=== PATIENT | female | born 1945 | race Caucasian/White ===

== ENCOUNTER 2023-11-12 12:47 | Emergency (ER) | payer MEDICARE, OTHER ==
[~2023-11-12] VITALS: Ht 167.6 cm; Wt 77.0 kg
[~2023-11-12 12:47] MED LIST: MED4 MT; METO25TA6 MT
[2023-11-12] MEDS: FUROSEMIDE 40MG/4ML VIAL IV ONE (13:15)
[2023-11-12 13:40] VITALS: RESP 20
[2023-11-12 13:44] LABS: BG CARBOXYHEMOGLOBIN 1.3 % (0.5-1.5); BG DEOXYHEMOGLOBIN 2.1 % (0.0-5.0); BG FRACTION INSPIRED OXYGEN 68; BG HCO3 ACT 27.4 mmol/L (22.0-26.0); BG METHEMOGLOBIN 0.1 % (0.0-1.5); BG OXYGEN SATURATION 97.9 % (92.0-98.5); BG OXYHEMOGLOBIN 96.5 % (94.0-97.0); BG PCO2 88.2 mmHg (35.0-45.0); BG SAMPLE SITE RIGHT RADIAL; BG TOTAL HEMOGLOBIN 12.7 g/dL (12.0-18.0); BG VENT MODE MASK - SIMPLE
[2023-11-12 13:59] LABS: BASOPHILS % 0.3 % (0.0-2.0); DIFFERENTIAL COMMENT 0; HEMATOCRIT. 36.9 % (36.0-48.0); HEMOGLOBIN. 11.3 g/dL (12.0-16.0); LYMPHOCYTES % 7.6 % (20.0-50.0); MEAN CORPUSCULAR HEMOGLOBIN 24.8 pg (28.0-32.0); MEAN CORPUSCULAR HGB CONC 30.5 g/dL (31.0-37.0); MEAN CORPUSCULAR VOLUME 81.5 fL (81.0-99.0); MEAN PLATELET VOLUME 9.6 fl (7.4-10.4); MONOCYTES % 4.8 % (2.0-8.0); NEUTROPHILS % 85.3 % (40.0-76.0); PLATELET 174 x1000/uL (130-400); RED BLOOD CELL COUNT 4.53 mill/uL (4.2-5.4); RED CELL DISTRIBUTION WIDTH 19.8 % (11.6-14.6); WHITE BLOOD COUNT 6.9 x1000/uL (4.5-11.0)
[2023-11-12 14:10] LABS: ALANINE AMINOTRANSFERASE 33 IU/L (10-49); ALBUMIN 3.8 g/dL (3.2-4.8); ASPARTATE AMINOTRANSFERASE 94 IU/L (<34); BILIRUBIN TOTAL 0.9 mg/dL (0.1-1.0); CALCIUM 9.4 mg/dL (8.7-10.4); CARBON DIOXIDE 29 mEq/L (21-32); CHLORIDE 99 mEq/L (98-107); CREATININE 1.1 mg/dL (0.6-1.0); GLUCOSE 135 mg/dL (70-105); PROTEIN TOTAL 7.7 g/dL (6.0-8.3); SODIUM 131 mEq/L (136-145); TROPONIN I HIGH SENSITIVITY 5 ng/L (3.0-34); UREA NITROGEN BLOOD 48 mg/dL (9-23)
[2023-11-12 14:11] LABS: CLARITY URINE CLEAR (CLEAR); COLOR URINE DARK YELLOW (YELLOW); GLUCOSE URINE NEGATIVE (NEGATIVE); KETONES URINE NEGATIVE (NEGATIVE); LEUKOCYTE ESTERASE URINE TRACE (NEGATIVE); NITRITE URINE NEGATIVE (NEGATIVE); OCCULT BLOOD URINE NEGATIVE (NEGATIVE); PH URINE 5.5 (4.5-8.0); PROTEIN URINE 1+ (NEGATIVE); SPECIFIC GRAVITY URINE 1.016 (1.005-1.030)
[2023-11-12 14:24] LABS: POTASSIUM 6.6 mEq/L (3.5-5.1)
[2023-11-12 14:27] LABS: FINE GRANULAR CASTS URINE 0-5 /lpf; HYALINE CASTS URINE TNTC /lpf
[2023-11-12 14:29] LABS: MUCUS URINE TRACE /lpf (< = 2+)
[2023-11-12 14:30] LABS: RBC URINE 0-2 /hpf (0-2)
[2023-11-12 14:32] LABS: BACTERIA URINE 1+; SQUAMOUS EPITHELIAL CELL URINE RARE /lpf (RARE/1+)
[2023-11-12 15:00] VITALS: PULSE 70; RESP 21
[2023-11-12] MEDS: PIPERACILLIN/TAZO 3.375G/50ML 50 ML IV NR (15:00)
[2023-11-12] MEDS: METHYLPREDNISOLONE SOD SUCC 125MG/2ML (ACT-O-VIAL) IV NR (15:00)
[2023-11-12] MEDS: DEXTROSE 50% WATER 50ML SYRINGE IV NR (15:00)
[2023-11-12] MEDS: MAGNESIUM 2 G PREMIX 50 ML IV NR (15:00)
[2023-11-12] MEDS: INSULIN REGULAR (HUMULIN R) 300UNITS/3ML VIAL IV NR (15:00)
[2023-11-12] MEDS: SODIUM CHLORIDE 0.9% 250 ML IV ONE (15:15)
[2023-11-12] MEDS: ALBUTEROL (0.083%) 2.5MG/3ML NEB HHN NR (15:41)
[2023-11-12] MEDS: IPRATROPIUM BROMIDE (0.02%) 0.5MG/2.5ML NEB HHN NR (15:41)
[2023-11-12] MEDS: FENTANYL CITRATE/PF 50MCG/ML 2ML VIAL IV ONE (15:45)
[2023-11-12] MEDS ORDERED: MIDAZOLAM HCL 100 MG in DEXT 5% WATER 80 ML IV ONE (15:45)
[2023-11-12] MEDS: VANCOMYCIN 1G PREMIX 200 ML IV NR (16:00)
[2023-11-12 16:01] LABS: INR 1.5; PROTHROMBIN TIME 16.7 sec (9.6-11.0)
[2023-11-12 16:02] LABS: TROPONIN I HIGH SENSITIVITY 4 ng/L (3.0-34)
[2023-11-12 16:04] LABS: CALCIUM 9.2 mg/dL (8.7-10.4); POTASSIUM 5.5 mEq/L (3.5-5.1)
[2023-11-12] MEDS ORDERED: SODIUM BICARBONATE 8.4% 1 MEQ/ML 50ML SYR IV NR (16:30)
[2023-11-12] MEDS ORDERED: ALBUTEROL (0.083%) 2.5MG/3ML NEB HHN NR (16:30)
[2023-11-12 16:42] LABS: BG BASE EXCESS 1.5 mmol/L (-2.0-2.0); BG CARBOXYHEMOGLOBIN 1.4 % (0.5-1.5); BG DEOXYHEMOGLOBIN 4.3 % (0.0-5.0); BG FRACTION INSPIRED OXYGEN 50; BG HCO3 ACT 27.3 mmol/L (22.0-26.0); BG METHEMOGLOBIN 0.2 % (0.0-1.5); BG OXYGEN SATURATION 95.6 % (92.0-98.5); BG OXYHEMOGLOBIN 94.1 % (94.0-97.0); BG PCO2 47.9 mmHg (35.0-45.0); BG PH 7.374 (7.350-7.450); BG PO2 74.5 mmHg (75.0-100.0); BG SAMPLE SITE RIGHT RADIAL; BG TOTAL HEMOGLOBIN 12.5 g/dL (12.0-18.0); BG VENT MODE VENT - AC/VC
[2023-11-12] MEDS: FUROSEMIDE 40MG/4ML VIAL IV NR (17:00)
[2023-11-12 18:00] VITALS: PULSE 74; RESP 23
[2023-11-12 20:00] VITALS: O2SAT 100
[2023-11-12] MEDS: MIDAZOLAM 100MG/100ML PREMIX IV PRN (20:00)
[2023-11-12 20:10] VITALS: PULSE 79; RESP 24
[2023-11-12] MEDS ORDERED: ACETAMINOPHEN 650MG/20.3ML UDC GT PRN (21:00)
[2023-11-12] MEDS ORDERED: DEXTROSE 50% WATER 50ML SYRINGE IV PRN (21:00)
[2023-11-12] MEDS ORDERED: IPRATROPIUM/ALBUTEROL 0.5-3(2.5)MG/3ML NEB HHN PRN (21:00)
[2023-11-12 21:59] LABS: IRON 26 ug/dL (50-170); TOTAL IRON BINDING CAPACITY 268 ug/dl (250-425)
[2023-11-12 22:32] LABS: FERRITIN 154 ng/mL (10-291)
[2023-11-12] MEDS: INSULIN LISPRO 100 UNITS/ML SUBCUT SCH (22:38)
[2023-11-12] MEDS: BLOOD SUGAR DIAGNOSTIC STRIP TEST SCH (22:38)
[2023-11-12] MEDS: METHYLPREDNISOLONE SOD SUCC 40MG/ML (ACT-O-VIAL) IV SCH (22:42)
[2023-11-12 22:59] LABS: VITAMIN B12 SERUM > 20000 pg/mL (211-911)
[2023-11-12] MEDS: CEFTRIAXONE 2GM/50ML (ADDEASE) 50 ML IV SCH (22:59)
[2023-11-12] MEDS: AZITHROMYCIN 500MG/250ML 250 ML IV NR (23:15)
[2023-11-12] MEDS: DEXT 5%/0.9% NACL 1,000 ML IV SCH (23:15)
[2023-11-12] MEDS: SODIUM POLYSTYRENE SULFONATE 15 G/60 ML BOT PO NR (23:15)
[2023-11-13 00:45] VITALS: PULSE 85; RESP 20
[2023-11-13 00:58] LABS: AMMONIA < 17 uMol/L (<32)
[2023-11-13 01:04] LABS: CREATINE KINASE MB FRACTION < 0.5 ng/mL (0.5-3.6); TROPONIN I HIGH SENSITIVITY 4 ng/L (3.0-34)
[2023-11-13 01:05] LABS: CREATINE KINASE < 15 IU/L (34-145)
[2023-11-13 03:12] LABS: PHOSPHORUS 3.4 mg/dL (2.5-4.9)
[2023-11-13 04:56] VITALS: PULSE 89; RESP 20
[2023-11-13 05:37] LABS: BASOPHILS % 0.2 % (0.0-2.0); DIFFERENTIAL COMMENT 0; HEMATOCRIT. 36.3 % (36.0-48.0); HEMOGLOBIN. 11.4 g/dL (12.0-16.0); LYMPHOCYTES % 8.8 % (20.0-50.0); MEAN CORPUSCULAR HEMOGLOBIN 24.7 pg (28.0-32.0); MEAN CORPUSCULAR HGB CONC 31.4 g/dL (31.0-37.0); MEAN CORPUSCULAR VOLUME 78.6 fL (81.0-99.0); MEAN PLATELET VOLUME 9.5 fl (7.4-10.4); MONOCYTES % 1.2 % (2.0-8.0); NEUTROPHILS % 89.8 % (40.0-76.0); PLATELET 199 x1000/uL (130-400); RED BLOOD CELL COUNT 4.61 mill/uL (4.2-5.4); RED CELL DISTRIBUTION WIDTH 19.3 % (11.6-14.6); WHITE BLOOD COUNT 5.7 x1000/uL (4.5-11.0)
[2023-11-13 05:53] LABS: ALANINE AMINOTRANSFERASE 21 IU/L (10-49); ALBUMIN 2.8 g/dL (3.2-4.8); ASPARTATE AMINOTRANSFERASE 41 IU/L (<34); CALCIUM 9.2 mg/dL (8.7-10.4); CARBON DIOXIDE 32 mEq/L (21-32); CHLORIDE 99 mEq/L (98-107); CHOLESTEROL 108 mg/dL (<200); CREATININE 0.8 mg/dL (0.6-1.0); GLUCOSE 185 mg/dL (70-105); HDL CHOLESTEROL 22 mg/dL (>65); LDL CHOLESTEROL 72 mg/dL (5-100); SODIUM 139 mEq/L (136-145); TRIGLYCERIDE 71 mg/dL (0-150); UREA NITROGEN BLOOD 41 mg/dL (9-23)
[2023-11-13 05:54] LABS: CREATINE KINASE MB FRACTION 0.6 ng/mL (0.5-3.6); TROPONIN I HIGH SENSITIVITY 6 ng/L (3.0-34)
[2023-11-13 06:02] LABS: POTASSIUM 2.9 mEq/L (3.5-5.1); PROTEIN TOTAL 5.7 g/dL (6.0-8.3)
[2023-11-13 06:03] LABS: CREATINE KINASE < 15 IU/L (34-145)
[2023-11-13] MEDS ORDERED: ENOXAPARIN 40MG/0.4ML SYR SUBCUT SCH (08:00)
[2023-11-13] MEDS ORDERED: MAGNESIUM 2 G PREMIX 50 ML IV NR (08:00)
[2023-11-13 08:02] VITALS: PULSE 93; RESP 20
[2023-11-13] MEDS: IPRATROPIUM/ALBUTEROL 0.5-3(2.5)MG/3ML NEB HHN SCH (08:02)
[2023-11-13] MEDS: PANTOPRAZOLE SODIUM 40 MG/VIAL IV SCH (09:00)
[2023-11-13] MEDS ORDERED: DEXT 5%/0.9% NACL KCL 30MEQ/L 1,000 ML IV ONE (09:00)
[2023-11-13] MEDS ORDERED: MAGNESIUM SULFATE 1GM/2ML VIAL IV ONE (09:15)
[2023-11-13] MEDS ORDERED: MAGNESIUM 2G PREMIX 50ML IV NR (09:15)
[2023-11-13 09:16] LABS: POTASSIUM 2.9 mEq/L (3.5-5.1)
[2023-11-13 09:25] LABS: BG BASE EXCESS 8.3 mmol/L (-2.0-2.0); BG CARBOXYHEMOGLOBIN 0.3 % (0.5-1.5); BG DEOXYHEMOGLOBIN 3.1 % (0.0-5.0); BG FRACTION INSPIRED OXYGEN 50; BG HCO3 ACT 31.7 mmol/L (22.0-26.0); BG METHEMOGLOBIN 0.3 % (0.0-1.5); BG OXYGEN SATURATION 96.9 % (92.0-98.5); BG OXYHEMOGLOBIN 96.3 % (94.0-97.0); BG PCO2 39.3 mmHg (35.0-45.0); BG PH 7.524 (7.350-7.450); BG PO2 83.2 mmHg (75.0-100.0); BG SAMPLE SITE RIGHT BRACHIAL; BG TOTAL HEMOGLOBIN 12.6 g/dL (12.0-18.0); BG VENT MODE VENT - AC
[2023-11-13] MEDS ORDERED: POTASSIUM CHLORIDE INJ 30 MEQ in DEXT 5%/0.9% NACL 1,000 ML IV SCH (09:30)
[2023-11-13] MEDS: POTASSIUM CHLORIDE INJ 30 MEQ in DEXT 5%/0.9% NACL 1,000 ML IV SCH (09:30)
[2023-11-13 10:02] VITALS: PULSE 87; RESP 20
[2023-11-13] MEDS: ENOXAPARIN 80MG/0.8ML SYR SUBCUT SCH (11:00)
[2023-11-13 11:24] VITALS: BP 114/58; PULSE 82; RESP 20; TEMP 98.4
== END 2023-11-13 11:48 | disposition short-term general hospital (02) ==
LOC: ER 12:47 → EDBEDREQSVC 18:41 → EDBEDREQTM 18:41 → EDBEDREQ 18:41 → EDBEDREQTM 23:56 → ER 11-13 11:48
DX: J96.02 Acute respiratory failure with hypercapnia (principal); E78.5 Hyperlipidemia, unspecified; E11.9 Type 2 diabetes mellitus without complications; D50.8 Other iron deficiency anemias; E55.9 Vitamin D deficiency, unspecified; I11.0 Hypertensive heart disease with heart failure; I50.9 Heart failure, unspecified; E87.5 Hyperkalemia; J81.1 Chronic pulmonary edema
CPT/HCPCS: 99291; 71045; 96375 ×2; 31500; 96365; 96366; 96367; 87426; 80053 ×2; 81003; 82607; 82728; 82962 ×2; 83036; 83880; 83540; 83550; 83605; 83690; 83930; 84443; 85025 ×2; 85610; 85730; 87040; 87086; 84484 ×2; 87804 ×2; 84145; 82805 ×2; 82375 ×2; 94660; 94644; 36600 ×2; 93005; 96368; 94003; 93970; 80061; 82140; 82550; 82553; 83735; 84100; 85379; 96372; 82306; 84132; 80048; 36415 ×2; J3010; J0696; J1940; J3475 ×2; J2920 ×2; J2930; J2543; J3370; J7050; J0456; J1815 ×2; C9113; J2250; 94002; J3480; J7042; J7060